=== PATIENT | female | born 1960 | race Caucasian/White ===

== ENCOUNTER → 2018-11-13 | Outpatient (CLI) | payer BC | END | disposition home or self-care (01) | LOC: OIH 15:02 | PROVIDERS: ATTEND Family Medicine | DX: S69.91XA Unspecified injury of right wrist, hand and finger(s), initial encounter (principal); R07.81 Pleurodynia; M19.031 Primary osteoarthritis, right wrist; M85.88 Other specified disorders of bone density and structure, other site; M47.814 Spondylosis without myelopathy or radiculopathy, thoracic region; Z91.81 History of falling; X58.XXXA Exposure to other specified factors, initial encounter; Y93.89 Activity, other specified; Y92.89 Other specified places as the place of occurrence of the external cause; Y99.8 Other external cause status | CPT/HCPCS: 71100; 73100 ==

== ENCOUNTER → 2025-01-21 | Outpatient (CLI) | payer MEDICARE ==
--- NOTE | 2025-01-21 13:58 | HMCIMG ---
NM GASTRIC EMPTYING STUDY REASON: Epigastric pain COMPARISON: None TECHNIQUE: Routine imaging protocol was performed following ingestion of 1.5 mCi technetium 99m soft colloid mixed with 2 scrambled eggs. FINDINGS: Time activity curve yields a T1 half of 135 minutes. This is abnormal, upper limit of normal is 90 minutes. No reflux during the exam. IMPRESSION: 1. Prolonged gastric emptying, T1 half is 135 minutes.
== END | disposition home or self-care (01) ==
LOC: RAH 07:08
PROVIDERS: ATTEND Internal Medicine Gastroenterology
DX: R10.13 Epigastric pain (principal); R68.81 Early satiety; R14.0 Abdominal distension (gaseous)
CPT/HCPCS: 78264; A9541